=== PATIENT | female | born 1965 | race African-American/Black ===

== ENCOUNTER 2017-11-16 15:40 | Inpatient (IN) | payer OTHER ==
[2017-11-16] MEDS ORDERED: Succinylcholine Chloride 20 MG/ML 10 ml SYRINGE FS ONE (16:07)
[2017-11-16 16:35] LABS: Bilirubin Small (Negative); Blood, Urine Negative (Negative); Clarity CLOUDY (Clear); Glucose, Urine (Dipstick) Negative (Negative); Leukocyte Negative (Negative); Nitrite Negative (Negative); Protein, Urine (Dipstick) 30 mg/dL (Neg-Trace); Squamous Epithelial None Seen HPF (0-3); Urobilinogen 0.2 mg/dL (0.2-1.0); WBC/HPF None Seen HPF (0-3); pH, Urine 5.5 (5.0-9.0)
[2017-11-16 16:38] LABS: Pathc Cast-AUWi Flag 11.65 (0-2.49); Yeast-AUWi Flag 66.8 (0-25.0)
[2017-11-16 16:48] LABS: Hyaline Casts/LPF 0-3 HYALINE CAST LPF (0-3 Hyaline); Yeast-All Forms None Seen HPF (None Seen)
[2017-11-16 16:49] LABS: Bacteria/HPF 2+ HPF (None Seen); Manual Microscopic Reviewed? No Path Casts Seen
--- NOTE | 2017-11-16 16:58 | RAD ---
PORTABLE CHEST ONE VIEW 11/16/17 at 4:35 p.m. HISTORY: Sepsis, hypoxia. FINDINGS: The heart size is normal. Lungs are well expanded. There is air space disease in the right mid and lo wer lung zones. No pneumothoraces or large effusions are seen. IMPRESSION: Right lung pneumonia. POS: [facility]
[2017-11-16 17:34] LABS: Carbamazepine-Tegretol 7.6 ug/mL (4.0-12.0)
[2017-11-16 17:38] LABS: CKMB 2.3 ng/mL (0-6.6); Troponin I 0.017 ng/mL (< 0.028)
[2017-11-16 17:53] LABS: ALT (SGPT) 118 U/L (8-55); AST (SGOT) 161 U/L (5-34); Albumin 2.7 g/dL (3.5-5.0); Alkaline Phosphatase 66 U/L (40-150); Anion Gap 26 mmol/L (10-20); BUN (Urea Nitrogen) 69 mg/dL (9.8-20.1); Bilirubin, Total 0.3 mg/dL (0.2-1.2); Calc. Creatinine Clearance 0 mL/min (70-130); Calcium 8.6 mg/dL (7.8-10.44); Carbon Dioxide 16 mmol/L (22-29); Chloride 116 mmol/L (98-107); Estimated GFR-MDRD 25; Globulin 4.6 g/dL (2.4-3.5); Glucose 300 mg/dL (70-105); Potassium 5.4 mmol/L (3.5-5.1); Protein, Total 7.3 g/dL (6.0-8.3); Sodium 153 mmol/L (136-145)
[2017-11-16] MEDS ORDERED: Clindamycin/D5W 900 MG in Premix Bag 1 BAG IVPB SCH (18:15)
[2017-11-16] MEDS ORDERED: Cefepime 2 GM, Syringe 2.5 ML in Sterile Water 10 ML SLOW IVP SCH (18:15)
[2017-11-16 18:34] LABS: Band 26 % (5-11); Hemoglobin 14.8 g/dL (12.0-16.0); Lymphocytes 12 % (21-51); MDiff Complete? YES; Mean Corpuscular Hemoglobin 37.5 pg (27.0-31.0); Mean Platelet Volume 7.3 fL (7.4-10.4); Metamyelocyte 8 % (0-0); Monocytes 8 % (0-10); Neutrophil 44 % (42-75); PLT Morphology Comment Appears Adequate; Platelet Count 226 thou/uL (130-400); RBC Distribution Width 13.3 % (11.5-14.5); Reactive Lymphocytes 2 % (0-10); Red Blood Cell (RBC) Count 3.94 mill/uL (4.20-5.40); White Blood Cell (WBC) Count 3.3 thou/uL (4.8-10.8)
[2017-11-16] MEDS ORDERED: Dextrose 5% in Water 1,000 ML IV PRN (18:55)
[2017-11-16] MEDS ORDERED: Dextrose 50% Abboject 50 ML SYRINGE SLOW IVP PRN (18:55)
[2017-11-16] MEDS ORDERED: Acetaminophen 325 MG TAB PO PRN (18:55)
[2017-11-16] MEDS ORDERED: Ondansetron HCl/PF 4 MG/2 ML Vial IVP PRN (18:55)
[2017-11-16] MEDS ORDERED: CCU Electrolyte Replacement 1 EACH FS SCH (18:55)
[2017-11-16] MEDS ORDERED: Vancomycin HCl 1 GM in Sodium Chloride 0.9% 250 ML 250 ML IVPB SCH (18:55)
[2017-11-16] MEDS ORDERED: Potassium Phosphate 15 MMOL in Sodium Chloride 0.9% 250 ML 250 ML IV PRN (19:20)
[2017-11-16] MEDS ORDERED: CCU ELECTROLYTE REPLACEMENT PROTOCOL FS PRN (19:20)
[2017-11-16] MEDS ORDERED: Potassium Chloride 40 MEQ in Sodium Chloride 0.9% 250 ML 250 ML IVPB PRN (19:20)
[2017-11-16] MEDS ORDERED: Magnesium 2 GM/NS 0.9% 100 ML 2 GM in Premix Bag 1 BAG IVPB PRN (19:20)
[2017-11-16] MEDS ORDERED: Magnesium Oxide 400 MG TAB PO PRN ×2 (19:20)
[2017-11-16] MEDS ORDERED: Potassium Chloride 40 MEQ in Premix Bag 1 BAG IVPB PRN (19:20)
[2017-11-16] MEDS ORDERED: Potassium Chloride 20 MEQ TAB PO PRN (19:20)
[2017-11-16] MEDS ORDERED: Potassium Phosphate 9 MMOL in Sodium Chloride 0.9% 100 ML IVPB PRN (19:20)
[2017-11-16] MEDS ORDERED: Potassium Phosphate 12 MMOL in Sodium Chloride 0.9% 250 ML 250 ML IV PRN (19:20)
[2017-11-16] MEDS ORDERED: Levofloxacin 750 mg/D5W 500 MG in Premix Bag 1 BAG IVPB SCH (19:45)
[2017-11-16] MEDS: Sodium Chloride 0.9% 1,000 ML IV SCH (20:00)
--- NOTE | 2017-11-16 20:10 | HP ---
REASON FOR ADMISSION: Septic shock with multiorgan failure, acute kidney injury , acute respiratory failure with hypoxia, pneumonia likely aspiration, debilitated patient. HISTORY OF PRESENT ILLNESS: The patient was sent from [facility] for saturations of 85% on 3 liters with low systolic blood pressure in the 90s. Please note, the patient is obtunded at present and majority of history was obtained by talking to the ER physician, records from [facility] , and prior medical records. On arrival here, the patient had systolic blood pressures of 70, heart rate of 124. Her second liter of fluid is being resuscitated at present. She was found to have pneumonia, bands of 26%. Sodium of 153, bicarbonate of 16, BUN 69, creatinine 2.4. Lactic acid was 9.6, elevated liver enzymes, and albumin 2.7. PAST MEDICAL/SURGICAL HISTORY: The patient has intellectual disability and most likely is bedridden, complex partial seizures, dyslipidemia, diabetes mellitus, history of menorrhagia, history of dermatophytosis of groin and perianal area, urinary incontinence, history of myoclonic jerking, left breast biopsy, cervical degenerative disk disease with subluxation of C1-C2 per prior records recorded in 04/2017 by Neurosurgery [facility]. CURRENT MEDICATIONS: Per prior records, the patient is on NovoLog sliding scale , Depakote extended release 1 gram in a.m. and 500 mg q.p.m., Tegretol 200 mg p.o. 3 times daily, Keppra 500 mg p.o. twice daily, pravastatin 20 mg p.o. at bedtime. The patient has been started on Tamiflu 75 mg p.o. twice daily from the 2nd of this month, metformin 1 gram q.p.m. ALLERGIES: No known drug allergies. PERSONAL HISTORY: The patient is a care home resident. Does not abuse alcohol, drugs, or smoke. FAMILY HISTORY: Cannot be obtained as no family is available. REVIEW OF SYSTEMS: Cannot be obtained as patient is obtunded at present. PHYSICAL EXAMINATION: GENERAL: The patient is a 52-year-old female who is cachectic and currently in septic shock and is obtunded. VITAL SIGNS: Blood pressure 70/60, pulse 124 per minute, respiratory rate 20 per minute, temperature 100.9 degrees Fahrenheit, saturating 88% on room air and 93% on 3 liters nasal cannula. NECK: Supple, no elevated JVD. HEENT: Eyes: The patient has strabismus. Pupils are 2 mm and sluggishly reacting to light. Oral cavity, mucous membranes are dry. No exudate seen. CARDIOVASCULAR: S1, S2 heard, tachycardic. RESPIRATORY: Air entry 1+ bilateral. Scattered rhonchi plus bilateral. ABDOMEN: Soft, bowel sounds heard. No tenderness, rigidity or guarding. EXTREMITIES: The patient has contractures of all 4 extremities. She also appears to have foot drop. Dupuytren's contractures of both hands. Peripheral pulses are barely palpable in the upper extremities. No ischemic ulcerations or gangrene. CENTRAL NERVOUS SYSTEM: The patient has not seen moving any extremities at present. She is lying limp on the ER gurney. PSYCHIATRIC: Cannot be assessed as patient is obtunded at present. LABORATORY DATA: White count 3.3, H&H 14 and 47, platelet count 226, MCV is 121 with 44% neutrophils, 26% bands. Sodium 153, potassium 5.4, serum bicarbonate 16, BUN 69, creatinine 2.4, serum glucose 300. Lactic acid is 9.6, AST 161, ALT 118. Total bilirubin 0.3, albumin is 2.7. One set of cardiac enzymes are negative. UA shows 2+ bacteria. Chest x-ray done showed right lung pneumonia. CLINICAL IMPRESSION AND PLAN: The patient will be admitted to [facility]. She is in septic shock, multiorgan failure, acute kidney injury, acute respiratory failure with hypoxia, right lung pneumonia, metabolic acidosis, severe dehydration, moderate to severe protein malnutrition with the patient weighing only 29 kilos. She was given 2 liters of fluid bolus in the ER and we will continue her on normal saline at 100 mL per hour. She has been pancultured and we will continue her on cefepime, Levaquin, and vancomycin. Likely, the patient has right lung aspiration pneumonia. We will continue her on Keppra and valproic acid for now for her history of seizures. If the patient can swallow in the morning, she can start her Tegretol. Her overall prognosis is poor. The patient has been started on Tamiflu from the 2nd of this month and we will continue this. I have discussed her findings with Dr. Baca, who has evaluated her in the ER here. Due to the patient's poor prognosis, her emaciated baseline with multiorgan failure at present, as mentioned above, the patient is being made do not resuscitate by me and Dr. Baca. Resuscitation will do more harm to her with her current physical condition than help her. Stopping short of resuscitating, the patient will be treated aggressively. We will also place her on stress dose of steroids. Please note, multiple attempts at reaching family including Ms. Amy Pennington, the number to reach her per care home records, , has not been answered. Case management consultation will be requested for help with locating next of kin. [facility] medical radiation dosimetrist, Ms. Marcelina Ling, number to reach her [phone] is again not reachable. I did speak to [facility] on-call and they were not able to provide a legal guardian for patient per their records, although they have been following the patient for quite sometime at [facility]. The patient was recently moved from [facility] to [facility]. Efforts to reach next of kin will continue with help from social work and case management. WENDIE
[2017-11-16] MEDS ORDERED: Cefepime 1 GM in Sodium Chloride 0.9% 100 ML IVPB SCH (21:00)
[2017-11-16] MEDS: Cefepime 1 GM, Admixture Fee 1 EACH in Sterile Water 10 ML SLOW IVP SCH (21:26)
[2017-11-16] MEDS ORDERED: Valproate Sodium 250 mg/5 ml UD Cup PO SCH (21:45)
[2017-11-16] MEDS ORDERED: Oseltamivir 6 MG/ML ORAL SUSP PO SCH (21:45)
[2017-11-16] MEDS ORDERED: VANCOMYCIN IVPB PRN (21:45)
[2017-11-16] MEDS: carBAMazepine 200 MG TAB PO SCH (22:02)
[2017-11-16] MEDS ORDERED: Sodium Chloride 0.9% 500 ML IV SCH (22:15)
[2017-11-16] MEDS: Sodium Chloride 0.9% 500 ML IVPB SCH ×2 (22:15→23:50)
[2017-11-16 22:22] VITALS: BMI 14.6
[2017-11-16 23:39] LABS: Bilirubin Negative (Negative); Blood, Urine Small (Negative); Clarity CLOUDY (Clear); Glucose, Urine (Dipstick) 500 mg/dL (Negative); Leukocyte Negative (Negative); Nitrite Negative (Negative); Protein, Urine (Dipstick) 30 mg/dL (Neg-Trace); Urobilinogen 0.2 mg/dL (0.2-1.0)
[2017-11-16 23:42] LABS: Bacteria/HPF None Seen HPF (None Seen); Hyaline Casts/LPF 4-6 HYALINE CAST LPF (0-3 Hyaline); Pathc Cast-AUWi Flag 1.21 (0-2.49); RBC/HPF 0-3 HPF (0-3); Squamous Epithelial 0-3 HPF (0-3); WBC/HPF 0-3 HPF (0-3)
[2017-11-16 23:44] LABS: Yeast-AUWi Flag 92.4 (0-25.0)
[2017-11-17] LABS: Yeast-All Forms None Seen HPF (None Seen)
[2017-11-17 00:01] LABS: Renal Epithelial None Seen HPF (0-3); Transitional Epithelial NONE SEEN HPF (0-3)
--- NOTE | 2017-11-17 00:13 | CON ---
DATE OF CONSULTATION: 11/16/2017 HISTORY OF PRESENT ILLNESS: Ms. Mora is a 52-year-old female with cerebral palsy who resides in [facility]. She is cared for by Dr. Raymond, although per my discussion with Dr. Ruiz, he had no contact with her. His nurse practitioner had contact with her. There were no contact numbers that are operable with regards to contact people. She has no designate d tool and fixture repairer per my discussion with the hospitalist and the nursing staff in the ER. She was admitted today with hypotension and tachycardia. She has been volume resuscitated. She has advanced cerebral palsy, is bedridden. PAST MEDICAL HISTORY: Remarkable for, 1. Seizure disorder. 2. Lipid disorder. 3. Diabetes. 4. History of urinary incontinence. 5. History of myoclonic jerking. 6. History of breast biopsy. 7. Degenerative arthritis according to old records. She is unable to give a history. FAMILY HISTORY: Not obtainable. SOCIAL HISTORY: She is obviously a nonsmoker, nondrinker. ALLERGIES: There were no reported drug allergies. REVIEW OF SYSTEMS: Not obtainable. PHYSICAL EXAMINATION: GENERAL: She is extremely cachectic. She is obtunded. VITAL SIGNS: Her pressure is in the 70s, heart rate was 120, respiratory rate was in the 30s. HEENT: Pupils were equal. Sclerae were anicteric. NECK: Without lymphadenopathy. LUNGS: Remarkable for coarse equal breath sounds. HEART: Regular rhythm. ABDOMEN: Soft. She was extremely cachectic. There were no palpable masses. EXTREMITIES: Without asymmetry. Again, cachectic extremities, no muscle. LABORATORY DATA: White count is 3.3, hemoglobin 14.8, platelets 226. Sodium 153, potassium 5.4, chl oride 116, bicarbonate 16, BUN 69, creatinine 2.47. AST 161, ALT 118, albumin 2.7. IMPRESSION: Hypotension, most likely a combination of early sepsis given that she has an infiltrate on my review in her lower lung field on the right and severe intravascular volume depletion manifeste d by elevated BUN, creatinine, sodium, and chloride. Aggressive volume resuscitation is appropriate, mechanical ventilation and life support is not in this setting since she has no caretakers. Dr. Last baugh and I have discussed this and agreed that placing her on mechanical ventilation or doing CPR would not be appropriate in this setting. She may well survive this with aggressive volume resuscit ation and antibiotics, but it would not be appropriate to intubate her or perform CPR, so a do not re suscitate order has been entered. This is 70-minute consult with greater than 50% of the time being involved with reviewing records, reviewing radiographs, and discussing care on the unit with the care team.
[2017-11-17 05:47] LABS: ALT (SGPT) 167 U/L (8-55); AST (SGOT) 222 U/L (5-34); Albumin 2.1 g/dL (3.5-5.0); Alkaline Phosphatase 52 U/L (40-150); Anion Gap 15 mmol/L (10-20); BUN (Urea Nitrogen) 43 mg/dL (9.8-20.1); Bilirubin, Total 0.2 mg/dL (0.2-1.2); Calc. Creatinine Clearance 30 mL/min (70-130); Calcium 7.7 mg/dL (7.8-10.44); Carbon Dioxide 19 mmol/L (22-29); Chloride 122 mmol/L (98-107); Estimated GFR-MDRD 60; Globulin 3.7 g/dL (2.4-3.5); Glucose 218 mg/dL (70-105); Potassium 4.4 mmol/L (3.5-5.1); Protein, Total 5.8 g/dL (6.0-8.3); Sodium 152 mmol/L (136-145)
[2017-11-17] MEDS: Sodium Chloride 0.9% 1,000 ML IV SCH ×2 (06:03→22:15)
[2017-11-17 06:14] LABS: Band 39 % (5-11); Hemoglobin 11.5 g/dL (12.0-16.0); Lymphocytes 8 % (21-51); MDiff Complete? YES; Mean Corpuscular HGB CONC 31.9 g/dL (32.0-36.0); Mean Corpuscular Hemoglobin 37.6 pg (27.0-31.0); Mean Platelet Volume 7.6 fL (7.4-10.4); Metamyelocyte 12 % (0-0); Monocytes 13 % (0-10); Neutrophil 28 % (42-75); Platelet Count 274 thou/uL (130-400); RBC Distribution Width 13.1 % (11.5-14.5); Red Blood Cell (RBC) Count 3.04 mill/uL (4.20-5.40); White Blood Cell (WBC) Count 4.3 thou/uL (4.8-10.8)
[2017-11-17] MEDS: carBAMazepine 200 MG TAB PO SCH ×3 (08:02→21:56)
[2017-11-17] MEDS: Valproate Sodium 250 mg/5 ml UD Cup PO SCH ×3 (08:03→21:56)
[2017-11-17] MEDS: Oseltamivir 6 MG/ML ORAL SUSP PO SCH ×2 (08:03→21:56)
[2017-11-17] MEDS: Cefepime 1 GM, Admixture Fee 1 EACH in Sterile Water 10 ML SLOW IVP SCH ×2 (08:27→22:14)
[2017-11-17] MEDS: Enoxaparin Sodium 30 MG/0.3 ML SYRINGE SC SCH (08:28)
[2017-11-17] MEDS ORDERED: FLU VACC QS2017-18 36 mo. & older 0.5 ML SYRINGE IM ONE (09:00)
--- NOTE | 2017-11-17 10:36 | PDOC.PN ---
- Subjective Encounter Start Date: 11/17/17 Encounter Start Time: 08:30 -: old records requested/rev pt only responds to noxious stimuli - Objective Resuscitation Status: Resuscitation Status DNR:Do Not Resuscitate MAR Reviewed: Yes Vital Signs & Weight: Vital Signs (12 hours) Temp Pulse Resp BP Pulse Ox 11/17/17 08:07 99 11/17/17 08:00 96.5 F L 102 H 17 99 11/17/17 07:54 96.5 F L 102 H 17 93/58 L 97 11/17/17 04:30 98.9 F 108 H 24 H 82/53 L 100 11/17/17 01:34 87/50 L 11/17/17 00:31 97.9 F 104 H 16 70/51 L 97 Weight Admit Weight 74 lb 9.6 oz Weight 74 lb 9.6 oz I&O: 11/16/17 11/17/17 11/18/17 06:59 06:59 06:59 Intake Total 2009 Output Total 550 Balance 1460 Result Diagrams: 11/17/17 04:51 11/17/17 04:51 Additional Labs: Accuchecks 11/17/17 11/17/17 11/16/17 06:43 00:58 23:04 POC Glucose 199 H 257 H 235 H Radiology Reviewed by me: Yes EKG Reviewed by me: Yes Phys Exam - Physical Examination Constitutional: NAD HEENT: PERRLA, sclera anicteric dry MM Neck: no JVD, supple Respiratory: no wheezing, no rales, no rhonchi Cardiovascular: RRR, no significant murmur, no rub Gastrointestinal: soft, no distention, positive bowel sounds Musculoskeletal: no edema, pulses present Lymphatic: no nodes Skin: no rash, normal turgor Dx/Plan (1) Acute kidney failure Status: Acute (2) Dehydration Code(s): E86.0 - DEHYDRATION Status: Acute (3) Healthcare associated bacterial pneumonia Code(s): J15.9 - UNSPECIFIED BACTERIAL PNEUMONIA Status: Acute (4) Hypernatremia Code(s): E87.0 - HYPEROSMOLALITY AND HYPERNATREMIA Status: Acute (5) Lactic acidosis Code(s): E87.2 - ACIDOSIS Status: Acute (6) Septic shock Code(s): A41.9 - SEPSIS, UNSPECIFIED ORGANISM; R65.21 - SEVERE SEPSIS WITH SEPTIC SHOCK Status: Acute (7) Transaminitis Code(s): R74.0 - NONSPEC ELEV OF LEVELS OF TRANSAMNS & LACTIC ACID DEHYDRGNSE Status: Acute (8) Cerebral palsy Code(s): G80.9 - CEREBRAL PALSY, UNSPECIFIED Status: Chronic (9) Diabetes type 2, controlled Code(s): E11.9 - TYPE 2 DIABETES MELLITUS WITHOUT COMPLICATIONS Status: Chronic (10) Dyslipidemia Code(s): E78.5 - HYPERLIPIDEMIA, UNSPECIFIED Status: Chronic (11) Macrocytic anemia Code(s): D53.9 - NUTRITIONAL ANEMIA, UNSPECIFIED Status: Chronic (12) Protein-calorie malnutrition, severe Code(s): E43 - UNSPECIFIED SEVERE PROTEIN-CALORIE MALNUTRITION Status: Chronic (13) Seizure disorder Code(s): G40.909 - EPILEPSY, UNSP, NOT INTRACTABLE, WITHOUT STATUS EPILEPTICUS Status: Chronic - Plan cont current plan of care, continue antibiotics * change ivf to dex with 1/4 ns at 125 ml per hour * control blood sugar * monitor labs * continue iv antibiotics * will wait for any improvement in next 24 hours * she may need peg tube if unable to eat * follow culture * medication reviewed as below * symptomatic treatment. Review of Systems - Review of Systems Other: unable to review as pt is encephalopathic - Medications/Allergies Allergies/Adverse Reactions: Allergies Allergy/AdvReac Type Severity Reaction Status Date / Time No Known Allergies Allergy Verified 04/28/17 03:48 Medications: Current Medications Acetaminophen (Tylenol) 650 mg PO Q4H PRN PRN Reason: Headache/Fever or Pain Carbamazepine (Tegretol) 200 mg PO TID [facility] Last Admin: 11/17/17 08:02 Dose: Not Given Dextrose/Water (Dextrose 50%) 25 gm SLOW IVP PRN PRN PRN Reason: Hypoglycemia Enoxaparin Sodium (Lovenox) 30 mg SC 0900 [facility] Last Admin: 11/17/17 08:28 Dose: 30 mg Glucagon (Glucagon) 1 mg IM PRN PRN PRN Reason: Hypoglycemia Dextrose/Water (D5w) 1,000 mls @ 0 mls/hr IV .Q0M PRN; As Directed PRN Reason: Hypoglycemia Levetiracetam 500 mg/ Device 100 mls @ 200 mls/hr IVPB BID [facility] Last Admin: 11/17/17 08:27 Dose: 100 mls Sodium Chloride (Normal Saline 0.9%) 1,000 mls @ 100 mls/hr IV .Q10H [facility] Last Admin: 11/17/17 06:03 Dose: 1,000 mls Potassium Chloride 40 meq/ (Sodium Chloride) 270 mls @ 135 mls/hr IVPB ASDIR PRN PRN Reason: FOR SERUM K+ 2.5 - 3.5 Potassium Chloride 40 meq/ (Device) 100 mls @ 50 mls/hr IVPB ASDIR PRN PRN Reason: FOR SERUM K+ 2.5 - 3.5 Magnesium Sulfate 1 gm/ Sodium (Chloride) 102 mls @ 102 mls/hr IV PRN PRN PRN Reason: MAG LEVEL 1.4 - 2.0 Magnesium Sulfate 2 gm/ Device 100 mls @ 100 mls/hr IVPB ASDIR PRN PRN Reason: MAGNESIUM < 1.4 Potassium Phosphate 9 mmol/ (Sodium Chloride) 103 mls @ 25.75 mls/hr IVPB ASDIR PRN PRN Reason: Phosphate 1.0-1.8 Potassium Phosphate 12 mmol/ (Sodium Chloride) 254 mls @ 63.5 mls/hr IV ASDIR PRN PRN Reason: Serum phosphate 0.5-0.9 Potassium Phosphate 15 mmol/ (Sodium Chloride) 255 mls @ 63.75 mls/hr IV ASDIR PRN PRN Reason: Serum Phos < 0.5 Cefepime HCl 1 gm/Miscellaneous Medication 1 each/ Sterile Water 10 mls @ 120 mls/hr SLOW IVP 0800,2000 [facility] Last Admin: 11/17/17 08:27 Dose: 10 mls Levofloxacin 250 mg/ Device 50 mls @ 100 mls/hr IVPB Q2D [facility] Vancomycin HCl 250 mg/Miscellaneous Medication 1 each/ Sodium Chloride 100 mls @ 100 mls/hr IVPB Q2D [facility] Insulin Human Lispro (Humalog) 0 units SC .MODERATE SLIDING SC PRN PRN Reason: Moderate Correctional Scale Magnesium Oxide (Magnesium Oxide) 400 mg PO BIDPRN PRN PRN Reason: FOR SERUM MAG 1.4 - 2.0 Magnesium Oxide (Magnesium Oxide) 800 mg PO PRN PRN PRN Reason: FOR SERUM MAG < 1.4 Methylprednisolone Sodium Succinate (Solu-Medrol) 20 mg IVP Q8HR [facility] Last Admin: 11/17/17 06:03 Dose: 20 mg Miscellaneous Medication (Phos-Nak) 1 pkt PO TIDPRN PRN PRN Reason: FOR PHOS LEVEL 1.0 - 1.8 Miscellaneous Medication (Phos-Nak) 2 pkt PO TIDPRN PRN PRN Reason: FOR PHOS LEVEL 0.5 - 1.0 Miscellaneous Medication (Pharmacy To Dose) 1 each IVPB PRN PRN PRN Reason: SEPSIS Ccu Electrolyte (Replacement Protocol) 0 each FS PRN PRN PRN Reason: FOR ELECTROLYTE REPLACEMENT Ondansetron HCl (Zofran) 4 mg IVP Q6H PRN PRN Reason: Nausea/Vomiting Oseltamivir Phosphate (Tamiflu) 75 mg PO BID [facility] Stop: 11/21/17 09:01 Last Admin: 11/17/17 08:03 Dose: Not Given Potassium Chloride (K-Dur) 40 meq PO ASDIR PRN PRN Reason: FOR SERUM K+ 2.5 - 3.5 Potassium Chloride (Klor-Con) 40 meq PER TUBE ASDIR PRN PRN Reason: FOR SERUM K+ 2.5-3.5 Valproic Acid (Depakene Liquid) 500 mg PO TID [facility] Last Admin: 11/17/17 08:03 Dose: Not Given
[2017-11-17] MEDS: D5 1/4 NS 1,000 ML IV SCH (12:30)
--- NOTE | 2017-11-17 12:43 | PRG ---
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 There is no designated point of contact apparently that is a valid number still. In my opinion, it w ould be almost criminal to place her on life support or put a feeding tube in her. I firmly believe that she is at the end of her life. She is 5 feet tall and weighs 74 pounds and is extremely cachect ic. PHYSICAL EXAMINATION: VITAL SIGNS: Vital signs have been stable overnight. She is currently afebrile, heart rate is 109, respiratory rate 17, oximetry is 98, blood pressure 102/64. She is still receiving antibiotics and IV fluids. Her microbiology is negative so far. Antibiotics have been simplified. IMPRESSION: 1. Aspiration pneumonia. 2. End of life cerebral palsy. I think she needs inpatient hospice, getting her qualified for this, i.e., consent forms is the obstacle. If not, we will just have to keep her in the hospital and keep her comfortable until she succumbs. She is in my belief and Dr. Ruiz's belief at the end of her life.
[2017-11-18] MEDS: D5 1/4 NS 1,000 ML IV SCH (01:26)
[2017-11-18] MEDS: HumaLOG 300 UNITS/3 ML VIAL SC PRN ×2 (07:20→21:41)
[2017-11-18] MEDS: Sodium Chloride 0.9% 1,000 ML IV SCH ×2 (07:22→20:05)
[2017-11-18] MEDS: carBAMazepine 200 MG TAB PO SCH ×3 (09:54→20:07)
[2017-11-18] MEDS: Enoxaparin Sodium 30 MG/0.3 ML SYRINGE SC SCH (09:54)
[2017-11-18] MEDS: Valproate Sodium 250 mg/5 ml UD Cup PO SCH ×3 (09:55→20:08)
[2017-11-18] MEDS: Oseltamivir 6 MG/ML ORAL SUSP PO SCH ×2 (09:55→20:08)
--- NOTE | 2017-11-18 13:42 | PDOC.PN ---
- Subjective Encounter Start Date: 11/18/17 Encounter Start Time: 13:40 Patient seen and examined, no new changes in the last 24 hours. - Objective Resuscitation Status: Resuscitation Status DNR:Do Not Resuscitate Vital Signs & Weight: Vital Signs (12 hours) Temp Pulse Resp BP Pulse Ox 11/18/17 12:02 97.9 F 75 14 105/47 L 98 11/18/17 08:31 98.1 F 75 14 110/68 98 11/18/17 04:00 98.3 F 75 16 109/69 98 Weight Admit Weight 74 lb 9.6 oz Weight 74 lb 9.6 oz I&O: 11/17/17 11/18/17 11/19/17 06:59 06:59 06:59 Intake Total 2009 1200 Output Total 550 550 Balance 1460 650 Result Diagrams: 11/17/17 04:51 11/17/17 04:51 Additional Labs: Accuchecks 11/18/17 11/18/17 11/18/17 10:28 06:22 01:23 POC Glucose 145 H 193 H 187 H 11/17/17 17:09 POC Glucose 168 H Phys Exam - Physical Examination Constitutional: NAD HEENT: PERRLA, moist MMs Neck: no nodes, no JVD Respiratory: no wheezing, no rales Cardiovascular: RRR, no significant murmur Gastrointestinal: soft, non-tender Musculoskeletal: no edema, pulses present not answering questions, not following commands Lymphatic: no nodes Dx/Plan (1) Dehydration Code(s): E86.0 - DEHYDRATION Status: Acute (2) Cerebral palsy Code(s): G80.9 - CEREBRAL PALSY, UNSPECIFIED Status: Chronic (3) Dyslipidemia Code(s): E78.5 - HYPERLIPIDEMIA, UNSPECIFIED Status: Chronic (4) Protein-calorie malnutrition, severe Code(s): E43 - UNSPECIFIED SEVERE PROTEIN-CALORIE MALNUTRITION Status: Chronic - Plan * Extremely poor prognosis, palliative care onboard * will continue with current plan of care, however, hospice/palliative care would be the best option for this patient * no other changes for now * no family at bedside
[2017-11-18] MEDS: Cefepime 1 GM, Admixture Fee 1 EACH in Sterile Water 10 ML SLOW IVP SCH ×2 (14:07→20:05)
[2017-11-18] MEDS ORDERED: Vancomycin HCl 250 MG, Admixture Fee 1 EACH in Sodium Chloride 0.9% 100 ML IVPB SCH (18:00)
[2017-11-18] MEDS ORDERED: Sodium Chloride 0.9% 1,000 ML IV SCH (20:43)
[2017-11-18] MEDS ORDERED: Furosemide 20 MG/2 ML VIAL SLOW IVP SCH (20:45)
[2017-11-18] MEDS: Dextrose 5% in Water 1,000 ML IV SCH (21:40)
--- NOTE | 2017-11-18 22:12 | PRG ---
DATE OF SERVICE: 11/18/2017 SERVICE: Pulmonary Medicine. INTERVAL HISTORY: Patient is doing okay from a respiratory standpoint. She remains a little bit of oxygen. She can provide me any additional elements of the history. She is completely encephalopathi c statically. PHYSICAL EXAMINATION: VITAL SIGNS: Afebrile, pulse 80, blood pressure 113/71, respirations 14, saturation 98% on 3 liters nasal cannula. GENERAL: Patient is awake, alert, in no apparent distress. LUNGS: Excellent air entry. Rhonchi are present. No prolonged expiratory phase. Crackles are also evident dependently. HEART: Normal rate, regular. ABDOMEN: Soft, nontender, nondistended. Bowel sounds positive. MUSCULOSKELETAL: Right lower extremity has 2+ pitting. The left lower extremity has trace pitting. : Indwelling catheters present. NEUROLOGIC: Grossly nonfocal. LABORATORY DATA: Blood sugars ranged from 145 to 193. Blood cultures x2 are negative. Urine cultur e is also negative. ASSESSMENT: 1. Static encephalopathy secondary to cerebral palsy. 2. Acute hypoxic respiratory failure. 3. Healthcare-associated pneumonia. PLAN: We will continue antibiotics, and nebulized medications, and other supportive measures. We wi ll watch her volume status. IV fluids will be reduced as the patient has significant signs consisten t with volume overload. Pulmonary will continue to follow commands intermittently while the patient remains in this location.
[2017-11-19] MEDS: Cefepime 1 GM, Admixture Fee 1 EACH in Sterile Water 10 ML SLOW IVP SCH ×2 (08:12→20:44)
[2017-11-19] MEDS: Enoxaparin Sodium 30 MG/0.3 ML SYRINGE SC SCH (08:12)
[2017-11-19] MEDS: carBAMazepine 200 MG TAB PO SCH ×3 (08:12→20:47)
[2017-11-19] MEDS: Oseltamivir 6 MG/ML ORAL SUSP PO SCH ×2 (08:25→20:48)
[2017-11-19] MEDS: Valproate Sodium 250 mg/5 ml UD Cup PO SCH ×3 (08:25→20:48)
[2017-11-19] MEDS: HumaLOG 300 UNITS/3 ML VIAL SC PRN ×2 (13:08→18:55)
--- NOTE | 2017-11-19 13:17 | PDOC.PN ---
- Subjective Encounter Start Date: 11/19/17 Encounter Start Time: 13:16 Patient seen and examined, no new issues in the last 24 hours - Objective Resuscitation Status: Resuscitation Status DNR:Do Not Resuscitate Vital Signs & Weight: Vital Signs (12 hours) Temp Pulse Resp BP Pulse Ox 11/19/17 08:57 98.4 F 59 L 20 105/65 100 11/19/17 08:00 98.4 F 59 L 20 100 11/19/17 04:34 99.8 F H 67 16 116/76 97 11/19/17 02:48 95 Weight Admit Weight 74 lb 9.6 oz Weight 74 lb 9.6 oz I&O: 11/18/17 11/19/17 11/20/17 06:59 06:59 06:59 Intake Total 1200 1480 Output Total 550 850 Balance 650 630 Result Diagrams: 11/17/17 04:51 11/17/17 04:51 Additional Labs: Accuchecks 11/19/17 11/19/17 11/18/17 11:47 06:15 21:03 POC Glucose 233 H 156 H 214 H 11/18/17 15:51 POC Glucose 168 H Phys Exam - Physical Examination Constitutional: NAD HEENT: PERRLA, moist MMs Neck: no nodes, no JVD Respiratory: no wheezing, no rales Cardiovascular: RRR, no significant murmur Gastrointestinal: soft, non-tender Musculoskeletal: no edema, pulses present contracted Deviation from normal: non verbal, not following commands Skin: no rash, normal turgor Dx/Plan (1) Dehydration Code(s): E86.0 - DEHYDRATION Status: Acute (2) Cerebral palsy Code(s): G80.9 - CEREBRAL PALSY, UNSPECIFIED Status: Chronic (3) Dyslipidemia Code(s): E78.5 - HYPERLIPIDEMIA, UNSPECIFIED Status: Chronic (4) Protein-calorie malnutrition, severe Code(s): E43 - UNSPECIFIED SEVERE PROTEIN-CALORIE MALNUTRITION Status: Chronic - Plan * continue current plan of care * patient will benefit from palliative/hospice care as she has a very poor prognosis * will continue with supportive care for now * no family at bedside
[2017-11-19] MEDS: Dextrose 5% in Water 1,000 ML IV SCH (20:41)
[2017-11-20] MEDS: HumaLOG 300 UNITS/3 ML VIAL SC PRN ×3 (06:51→19:10)
[2017-11-20] MEDS ORDERED: Eucerin (Mineral Oil/Petrolatum,White) 30 gm Jar TOP PRN (07:50)
[2017-11-20] MEDS ORDERED: Fleet Enema 133 ML BOT PR PRN (07:50)
[2017-11-20] MEDS ORDERED: Diabetic Tussin 200 MG/10 ML UDCUP PO PRN (07:50)
[2017-11-20] MEDS ORDERED: hydrALAZINE 20 MG/ML VIAL SLOW IVP PRN (07:50)
[2017-11-20] MEDS ORDERED: Sodium Chloride 0.65% Nasal 44 ML BOT EA NARE PRN (07:50)
[2017-11-20] MEDS ORDERED: Senokot 8.6 MG TAB PO PRN (07:50)
[2017-11-20] MEDS ORDERED: Artificial Tear Sol 15 ML BOT EA EYE PRN (07:50)
[2017-11-20] MEDS ORDERED: Chloraseptic Spray 180 ml Bottle PO PRN (07:50)
[2017-11-20] MEDS ORDERED: Mag-Al 1200 mg/1200 mg/30 ML UDCUP PO PRN (07:50)
[2017-11-20] MEDS ORDERED: Milk Of Magnesia 30 ML UDCUP PO PRN (07:50)
[2017-11-20] MEDS ORDERED: Bisacodyl 10 MG SUPP PR PRN (07:50)
[2017-11-20] MEDS: Enoxaparin Sodium 30 MG/0.3 ML SYRINGE SC SCH (08:09)
[2017-11-20] MEDS: carBAMazepine 200 MG TAB PO SCH ×3 (08:09→21:47)
[2017-11-20] MEDS: Cefepime 1 GM, Admixture Fee 1 EACH in Sterile Water 10 ML SLOW IVP SCH ×2 (08:09→21:37)
[2017-11-20] MEDS: Valproate Sodium 250 mg/5 ml UD Cup PO SCH ×3 (08:10→21:49)
[2017-11-20] MEDS: Oseltamivir 6 MG/ML ORAL SUSP PO SCH ×2 (08:10→21:47)
[2017-11-20 08:24] LABS: Hemoglobin 11.4 g/dL (12.0-16.0); Mean Corpuscular HGB CONC 33.2 g/dL (32.0-36.0); Mean Corpuscular Hemoglobin 38.2 pg (27.0-31.0); Mean Platelet Volume 9.1 fL (7.4-10.4); Platelet Count 275 thou/uL (130-400); RBC Distribution Width 12.9 % (11.5-14.5)
[2017-11-20] MEDS: Famotidine/PF 20 mg/2ml Vial SLOW IVP SCH (08:32)
[2017-11-20 09:49] LABS: ALT (SGPT) 329 U/L (8-55); AST (SGOT) 65 U/L (5-34); Albumin 2.1 g/dL (3.5-5.0); Alkaline Phosphatase 68 U/L (40-150); Anion Gap 13 mmol/L (10-20); BUN (Urea Nitrogen) 23 mg/dL (9.8-20.1); Bilirubin, Total 0.3 mg/dL (0.2-1.2); Calc. Creatinine Clearance 46 mL/min (70-130); Carbon Dioxide 24 mmol/L (22-29); Chloride 114 mmol/L (98-107); Estimated GFR-MDRD Greater than 90; Globulin 3.6 g/dL (2.4-3.5); Glucose 234 mg/dL (70-105); Potassium 3.8 mmol/L (3.5-5.1); Protein, Total 5.7 g/dL (6.0-8.3); Sodium 147 mmol/L (136-145)
[2017-11-20 10:51] LABS: Band 22 % (5-11); Eosinophils 1 % (0-10); Lymphocytes 16 % (21-51); MDiff Complete? YES; Macrocytosis MODERATE=16-30 cells (100X) (0-5/hpf); Monocytes 3 % (0-10); Neutrophil 57 % (42-75); RBC Morphology Normal; Reactive Lymphocytes 1 % (0-10)
--- NOTE | 2017-11-20 12:01 | PDOC.PN ---
- Subjective Encounter Start Date: 11/20/17 Encounter Start Time: 07:50 pt is non verbal, does not follow command, Patient seen and examined. No overnight events - Objective Resuscitation Status: Resuscitation Status DNR:Do Not Resuscitate MAR Reviewed: Yes Vital Signs & Weight: Vital Signs (12 hours) Temp Pulse Resp BP Pulse Ox 11/20/17 08:00 98.1 F 75 14 97 11/20/17 07:20 98.1 F 75 14 103/64 97 11/20/17 04:26 98.2 F 66 16 94/61 100 11/20/17 00:37 100 11/20/17 00:12 98.2 F 66 20 97/67 100 Weight Admit Weight 74 lb 9.6 oz Weight 74 lb 9.6 oz I&O: 11/19/17 11/20/17 11/21/17 06:59 06:59 06:59 Intake Total 1480 1140 Output Total 850 775 Balance 630 365 Result Diagrams: 11/20/17 07:59 11/20/17 07:59 Additional Labs: Accuchecks 11/20/17 11/20/17 11/19/17 05:30 00:31 18:16 POC Glucose 169 H 147 H 232 H 11/19/17 11:47 POC Glucose 233 H Phys Exam - Physical Examination Constitutional: NAD HEENT: PERRLA, sclera anicteric dry MM+ Neck: no JVD, supple Respiratory: no wheezing, no rales, no rhonchi Cardiovascular: RRR, no significant murmur, no rub Gastrointestinal: soft, no distention, positive bowel sounds Musculoskeletal: no edema, pulses present unable to assess Lymphatic: no nodes Deviation from normal: flat affact Skin: no rash Dx/Plan (1) Acute kidney failure Status: Acute (2) Dehydration Code(s): E86.0 - DEHYDRATION Status: Acute (3) Healthcare associated bacterial pneumonia Code(s): J15.9 - UNSPECIFIED BACTERIAL PNEUMONIA Status: Acute (4) Hypernatremia Code(s): E87.0 - HYPEROSMOLALITY AND HYPERNATREMIA Status: Acute (5) Lactic acidosis Code(s): E87.2 - ACIDOSIS Status: Acute (6) Septic shock Code(s): A41.9 - SEPSIS, UNSPECIFIED ORGANISM; R65.21 - SEVERE SEPSIS WITH SEPTIC SHOCK Status: Acute (7) Transaminitis Code(s): R74.0 - NONSPEC ELEV OF LEVELS OF TRANSAMNS & LACTIC ACID DEHYDRGNSE Status: Acute (8) Cerebral palsy Code(s): G80.9 - CEREBRAL PALSY, UNSPECIFIED Status: Chronic (9) Diabetes type 2, controlled Code(s): E11.9 - TYPE 2 DIABETES MELLITUS WITHOUT COMPLICATIONS Status: Chronic (10) Dyslipidemia Code(s): E78.5 - HYPERLIPIDEMIA, UNSPECIFIED Status: Chronic (11) Macrocytic anemia Code(s): D53.9 - NUTRITIONAL ANEMIA, UNSPECIFIED Status: Chronic (12) Protein-calorie malnutrition, severe Code(s): E43 - UNSPECIFIED SEVERE PROTEIN-CALORIE MALNUTRITION Status: Chronic (13) Seizure disorder Code(s): G40.909 - EPILEPSY, UNSP, NOT INTRACTABLE, WITHOUT STATUS EPILEPTICUS Status: Chronic - Plan cont current plan of care, social media assistant * no family bedside * prognosis is very poor * palliative care discussing with family about goal of care * medication reviewed as below * symptomatic treatment * continue IVF * repeat labs tomorrow. Review of Systems - Review of Systems Other: unable to review as pt is encephalopathic - Medications/Allergies Allergies/Adverse Reactions: Allergies Allergy/AdvReac Type Severity Reaction Status Date / Time No Known Allergies Allergy Verified 04/28/17 03:48 Medications: Current Medications Acetaminophen (Tylenol) 650 mg PO Q4H PRN PRN Reason: Headache/Fever or Pain Al Hydroxide/Mg Hydroxide (Maalox) 15 ml PO Q4H PRN PRN Reason: Heartburn or Indigestion Albuterol/Ipratropium (Duoneb) 3 ml NEB [id number] PRN PRN Reason: SOB &/or Wheezing Artificial Tears (Tears Renewed 15ml Bottle) 0 drop EA EYE PRN PRN PRN Reason: Dry Eyes Bisacodyl (Dulcolax) 10 mg [place] DAILYPRN PRN PRN Reason: Constipation Carbamazepine (Tegretol) 200 mg PO TID [facility] Last Admin: 11/20/17 08:09 Dose: Not Given Dextrose/Water (Dextrose 50%) 25 gm SLOW IVP PRN PRN PRN Reason: Hypoglycemia Enoxaparin Sodium (Lovenox) 30 mg SC 0900 [facility] Last Admin: 11/20/17 08:09 Dose: 30 mg Famotidine (Pepcid) 20 mg SLOW IVP DAILY [facility] Last Admin: 11/20/17 08:32 Dose: 20 mg Glucagon (Glucagon) 1 mg IM PRN PRN PRN Reason: Hypoglycemia Guaifenesin (Robitussin Sf) 200 mg PO Q4H PRN PRN Reason: Cough Hydralazine HCl (Apresoline) 10 mg SLOW IVP Q4H PRN PRN Reason: Systolic BP > 180 Dextrose/Water (D5w) 1,000 mls @ 0 mls/hr IV .Q0M PRN; As Directed PRN Reason: Hypoglycemia Levetiracetam 500 mg/ Device 100 mls @ 200 mls/hr IVPB BID [facility] Last Admin: 11/20/17 08:08 Dose: 100 mls Cefepime HCl 1 gm/Miscellaneous Medication 1 each/ Sterile Water 10 mls @ 120 mls/hr SLOW IVP 0800,2000 [facility] Last Admin: 11/20/17 08:09 Dose: 10 mls Dextrose/Water (D5w) 1,000 mls @ 40 mls/hr IV .Q24H [facility] Last Admin: 11/19/17 20:41 Dose: 1,000 mls Insulin Human Lispro (Humalog) 0 units SC .MODERATE SLIDING SC PRN PRN Reason: Moderate Correctional Scale Last Admin: 11/20/17 06:51 Dose: 2 unit Magnesium Hydroxide (Milk Of Magnesium) 30 ml PO DAILYPRN PRN PRN Reason: Constipation Methylprednisolone Sodium Succinate (Solu-Medrol) 20 mg IVP DAILY [facility] Last Admin: 11/20/17 08:10 Dose: 20 mg Mineral Oil/White Petrolatum (Eucerin Cream) 0 gm TOP BIDPRN PRN PRN Reason: Dry Skin Miscellaneous Medication (Pharmacy To Dose) 1 each IVPB PRN PRN PRN Reason: SEPSIS Ccu Electrolyte (Replacement Protocol) 0 each FS PRN PRN PRN Reason: FOR ELECTROLYTE REPLACEMENT Ondansetron HCl (Zofran) 4 mg IVP Q6H PRN PRN Reason: Nausea/Vomiting Oseltamivir Phosphate (Tamiflu) 75 mg PO BID [facility] Stop: 11/21/17 09:01 Last Admin: 11/20/17 08:10 Dose: Not Given Phenol (Chloraseptic [place] 180 Ml Bot) 0 ml PO PRN PRN PRN Reason: Sore Throat Senna (Senokot) 2 tab PO HSPRN PRN PRN Reason: Constipation Sodium Biphosphate/Sodium Phosphate (Fleet Enema) 133 ml UT ONE PRN PRN Reason: Constipation Stop: 11/27/17 07:51 Sodium Chloride ([place] Nasal [place] 0.65%) 0 ml EA NARE QIDPRN PRN PRN Reason: Nasal Congestion Valproic Acid (Depakene Liquid) 500 mg PO TID [facility] Last Admin: 11/20/17 08:10 Dose: Not Given
[2017-11-20] MEDS: Dextrose 5% in Water 1,000 ML IV SCH ×2 (17:35→21:49)
--- NOTE | 2017-11-21 00:07 | PRG ---
DATE OF SERVICE: 11/20/2017 SUBJECTIVE: Ms. Mora remains unresponsive. OBJECTIVE: VITAL SIGNS: She is afebrile, heart rate is 58, respiratory rate is 15, oximetry is 100 on 3 liters, blood pressure 110/74. She is 5 feet tall, 74 pounds. Intake and outputs, positive 365. LUNGS: Unchanged. HEART: Unchanged. ABDOMEN: Unchanged. LABORATORY DATA: White count 7, hemoglobin 11.4, platelets 275. Sodium 147, potassium 3.8, chloride 114, bicarb 24, BUN 23, creatinine 0.75. Admitting creatinine was 2.74. I suspect given her exam f indings of no muscle mass, her baseline creatinine is 0.2 or 0.3. IMPRESSION: 1. Aspiration pneumonia. 2. Cerebral palsy, end of the life in my opinion. 3. Aspiration pneumonia, probably with underlying chronic aspiration. 4. Severe protein-calorie malnutrition. 5. Intravascular volume depletion on admission. 6. Do not resuscitate status as per the 2 doctors that have been available to take care with. The primary care team actually found a sister who lives in [facility] who has no interest in coming, I am told ,and then a niece who lives in [place] might come to see her, although they were not aware of her clinical condition and not aware that she was living in the [facility]. care has be en very helpful these days. CPR, intubation, ventilatory support, and PEG feeding is all inappropria te in my opinion. We will continue supportive care. I would treat her with 7 days of IV antibiotics and then consider placement. Inpatient hospice will be appropriate in my opinion, but there has to be some power of health care to sign consent forms as I understand it.
[2017-11-21] MEDS: HumaLOG 300 UNITS/3 ML VIAL SC PRN (06:56)
[2017-11-21] MEDS: Famotidine/PF 20 mg/2ml Vial SLOW IVP SCH (08:20)
[2017-11-21] MEDS: Enoxaparin Sodium 30 MG/0.3 ML SYRINGE SC SCH (08:20)
[2017-11-21] MEDS: Oseltamivir 6 MG/ML ORAL SUSP PO SCH (08:21)
[2017-11-21] MEDS: carBAMazepine 200 MG TAB PO SCH ×3 (08:21→20:51)
[2017-11-21] MEDS: Valproate Sodium 250 mg/5 ml UD Cup PO SCH ×3 (08:22→20:52)
[2017-11-21] MEDS: Cefepime 1 GM, Admixture Fee 1 EACH in Sterile Water 10 ML SLOW IVP SCH ×2 (08:29→20:51)
[2017-11-21 08:44] LABS: ALT (SGPT) 202 U/L (8-55); AST (SGOT) 33 U/L (5-34); Albumin 2.1 g/dL (3.5-5.0); Alkaline Phosphatase 59 U/L (40-150); Anion Gap 13 mmol/L (10-20); BUN (Urea Nitrogen) 17 mg/dL (9.8-20.1); Bilirubin, Total 0.5 mg/dL (0.2-1.2); Calc. Creatinine Clearance 46 mL/min (70-130); Calcium 7.8 mg/dL (7.8-10.44); Carbon Dioxide 23 mmol/L (22-29); Chloride 108 mmol/L (98-107); Estimated GFR-MDRD Greater than 90; Globulin 3.4 g/dL (2.4-3.5); Glucose 230 mg/dL (70-105); Potassium 3.1 mmol/L (3.5-5.1); Protein, Total 5.5 g/dL (6.0-8.3); Sodium 141 mmol/L (136-145)
--- NOTE | 2017-11-21 10:05 | PDOC.PN ---
- Subjective Encounter Start Date: 11/21/17 Encounter Start Time: 06:45 -: non-verbal pt is unresponsive and not able to take by mouth any - Objective Resuscitation Status: Resuscitation Status DNR:Do Not Resuscitate MAR Reviewed: Yes Vital Signs & Weight: Vital Signs (12 hours) Temp Pulse Resp BP Pulse Ox 11/21/17 09:11 97.4 F L 73 24 H 84/52 L 98 11/21/17 07:40 98.3 F 58 L 16 11/21/17 04:01 98.3 F 58 L 16 80/57 L 99 11/21/17 03:43 99 11/21/17 00:58 98.5 F 58 L 20 95/64 99 Weight Admit Weight 74 lb 9.6 oz Weight 74 lb 9.6 oz I&O: 11/20/17 11/21/17 11/22/17 06:59 06:59 06:59 Intake Total 1140 580 Output Total 775 550 Balance 365 30 Result Diagrams: 11/20/17 07:59 11/21/17 08:13 Additional Labs: Accuchecks 11/21/17 11/21/17 11/20/17 06:02 00:08 17:51 POC Glucose 166 H 137 H 240 H 11/20/17 11:53 POC Glucose 244 H Phys Exam - Physical Examination Constitutional: NAD HEENT: PERRLA, sclera anicteric dry MM Neck: no JVD, supple Respiratory: no wheezing, no rales, no rhonchi Cardiovascular: RRR, no significant murmur Gastrointestinal: soft, no distention, positive bowel sounds Musculoskeletal: no edema, pulses present Lymphatic: no nodes Skin: no rash Dx/Plan (1) Acute kidney failure Status: Acute (2) Dehydration Code(s): E86.0 - DEHYDRATION Status: Acute (3) Healthcare associated bacterial pneumonia Code(s): J15.9 - UNSPECIFIED BACTERIAL PNEUMONIA Status: Acute (4) Hypernatremia Code(s): E87.0 - HYPEROSMOLALITY AND HYPERNATREMIA Status: Acute (5) Lactic acidosis Code(s): E87.2 - ACIDOSIS Status: Acute (6) Septic shock Code(s): A41.9 - SEPSIS, UNSPECIFIED ORGANISM; R65.21 - SEVERE SEPSIS WITH SEPTIC SHOCK Status: Acute (7) Transaminitis Code(s): R74.0 - NONSPEC ELEV OF LEVELS OF TRANSAMNS & LACTIC ACID DEHYDRGNSE Status: Acute (8) Cerebral palsy Code(s): G80.9 - CEREBRAL PALSY, UNSPECIFIED Status: Chronic (9) Diabetes type 2, controlled Code(s): E11.9 - TYPE 2 DIABETES MELLITUS WITHOUT COMPLICATIONS Status: Chronic (10) Dyslipidemia Code(s): E78.5 - HYPERLIPIDEMIA, UNSPECIFIED Status: Chronic (11) Macrocytic anemia Code(s): D53.9 - NUTRITIONAL ANEMIA, UNSPECIFIED Status: Chronic (12) Protein-calorie malnutrition, severe Code(s): E43 - UNSPECIFIED SEVERE PROTEIN-CALORIE MALNUTRITION Status: Chronic (13) Seizure disorder Code(s): G40.909 - EPILEPSY, UNSP, NOT INTRACTABLE, WITHOUT STATUS EPILEPTICUS Status: Chronic - Plan cont current plan of care, continue antibiotics, social welfare research worker * palliative care on board to address goal of care and hospice * continue IV antibiotics meanwhile * her prognosis is very poor * continue supportive care * medication reviewed as below. Review of Systems - Review of Systems Other: unable to review as pt is nonverbal - Medications/Allergies Allergies/Adverse Reactions: Allergies Allergy/AdvReac Type Severity Reaction Status Date / Time No Known Allergies Allergy Verified 04/28/17 03:48 Medications: Current Medications Acetaminophen (Tylenol) 650 mg PO Q4H PRN PRN Reason: Headache/Fever or Pain Al Hydroxide/Mg Hydroxide (Maalox) 15 ml PO Q4H PRN PRN Reason: Heartburn or Indigestion Albuterol/Ipratropium (Duoneb) 3 ml NEB [id number] PRN PRN Reason: SOB &/or Wheezing Artificial Tears (Tears Renewed 15ml Bottle) 0 drop EA EYE PRN PRN PRN Reason: Dry Eyes Bisacodyl (Dulcolax) 10 mg [place] DAILYPRN PRN PRN Reason: Constipation Carbamazepine (Tegretol) 200 mg PO TID [facility] Last Admin: 11/21/17 08:21 Dose: Not Given Dextrose/Water (Dextrose 50%) 25 gm SLOW IVP PRN PRN PRN Reason: Hypoglycemia Enoxaparin Sodium (Lovenox) 30 mg SC 0900 [facility] Last Admin: 11/21/17 08:20 Dose: 30 mg Famotidine (Pepcid) 20 mg SLOW IVP DAILY [facility] Last Admin: 11/21/17 08:20 Dose: 20 mg Glucagon (Glucagon) 1 mg IM PRN PRN PRN Reason: Hypoglycemia Guaifenesin (Robitussin Sf) 200 mg PO Q4H PRN PRN Reason: Cough Hydralazine HCl (Apresoline) 10 mg SLOW IVP Q4H PRN PRN Reason: Systolic BP > 180 Dextrose/Water (D5w) 1,000 mls @ 0 mls/hr IV .Q0M PRN; As Directed PRN Reason: Hypoglycemia Levetiracetam 500 mg/ Device 100 mls @ 200 mls/hr IVPB BID [facility] Last Admin: 11/21/17 08:21 Dose: 100 mls Cefepime HCl 1 gm/Miscellaneous Medication 1 each/ Sterile Water 10 mls @ 120 mls/hr SLOW IVP 799,1999 [facility] Last Admin: 11/21/17 08:29 Dose: 10 mls Dextrose/Water (D5w) 1,000 mls @ 40 mls/hr IV .Q24H [facility] Last Admin: 11/20/17 21:49 Dose: Not Given Insulin Human Lispro (Humalog) 0 units SC .MODERATE SLIDING SC PRN PRN Reason: Moderate Correctional Scale Last Admin: 11/21/17 06:56 Dose: 2 unit Magnesium Hydroxide (Milk Of Magnesium) 30 ml PO DAILYPRN PRN PRN Reason: Constipation Methylprednisolone Sodium Succinate (Solu-Medrol) 20 mg IVP DAILY [facility] Last Admin: 11/21/17 08:20 Dose: 20 mg Mineral Oil/White Petrolatum (Eucerin Cream) 0 gm TOP BIDPRN PRN PRN Reason: Dry Skin Miscellaneous Medication (Pharmacy To Dose) 1 each IVPB PRN PRN PRN Reason: SEPSIS Ccu Electrolyte (Replacement Protocol) 0 each FS PRN PRN PRN Reason: FOR ELECTROLYTE REPLACEMENT Ondansetron HCl (Zofran) 4 mg IVP Q6H PRN PRN Reason: Nausea/Vomiting Phenol (Chloraseptic [place] 180 Ml Bot) 0 ml PO PRN PRN PRN Reason: Sore Throat Senna (Senokot) 2 tab PO HSPRN PRN PRN Reason: Constipation Sodium Biphosphate/Sodium Phosphate (Fleet Enema) 133 ml FL ONE PRN PRN Reason: Constipation Stop: 11/27/17 07:51 Sodium Chloride ([place] Nasal [place] 0.65%) 0 ml EA NARE QIDPRN PRN PRN Reason: Nasal Congestion Valproic Acid (Depakene Liquid) 500 mg PO TID [facility] Last Admin: 11/21/17 08:22 Dose: Not Given
[2017-11-21] MEDS: Dextrose 5% in Water 1,000 ML IV SCH (21:30)
[2017-11-22] MEDS: Cefepime 1 GM, Admixture Fee 1 EACH in Sterile Water 10 ML SLOW IVP SCH ×2 (08:40→20:27)
[2017-11-22] MEDS: carBAMazepine 200 MG TAB PO SCH ×3 (08:40→20:27)
[2017-11-22] MEDS: Famotidine/PF 20 mg/2ml Vial SLOW IVP SCH (08:41)
[2017-11-22] MEDS: Enoxaparin Sodium 30 MG/0.3 ML SYRINGE SC SCH (08:41)
[2017-11-22] MEDS: Valproate Sodium 250 mg/5 ml UD Cup PO SCH ×3 (08:42→20:27)
[2017-11-22] MEDS: HumaLOG 300 UNITS/3 ML VIAL SC PRN (12:30)
[2017-11-22] MEDS: Dextrose 5% in Water 1,000 ML IV SCH (15:16)
--- NOTE | 2017-11-22 16:47 | PDOC.PN ---
- Subjective Encounter Start Date: 11/22/17 Encounter Start Time: 16:44 Subjective: Seen and examined condition still the same -: A family member(sister) is coming in on monday - Objective Resuscitation Status: Resuscitation Status DNR:Do Not Resuscitate Vital Signs & Weight: Vital Signs (12 hours) Temp Pulse Resp BP Pulse Ox 11/22/17 10:10 97.5 F L 59 L 16 102/63 97 11/22/17 08:00 97.5 F L 59 L 16 100 Weight Admit Weight 74 lb 9.6 oz Weight 74 lb 9.6 oz I&O: 11/21/17 11/22/17 11/23/17 06:59 06:59 06:59 Intake Total 580 840 Output Total 550 825 Balance 30 15 Result Diagrams: 11/20/17 07:59 11/21/17 08:13 Additional Labs: Accuchecks 11/22/17 11/22/17 11/22/17 12:08 06:28 00:59 POC Glucose 203 H 162 H 181 H 11/21/17 18:21 POC Glucose 205 H Phys Exam - Physical Examination Constitutional: NAD HEENT: PERRLA, moist MMs Neck: no nodes, no JVD, supple, full ROM Respiratory: no wheezing, no rales, no rhonchi Cardiovascular: RRR, no significant murmur, no rub Dx/Plan (1) Acute kidney failure Status: Acute (2) Cerebral palsy Code(s): G80.9 - CEREBRAL PALSY, UNSPECIFIED Status: Chronic (3) Diabetes type 2, controlled Code(s): E11.9 - TYPE 2 DIABETES MELLITUS WITHOUT COMPLICATIONS Status: Chronic (4) Dyslipidemia Code(s): E78.5 - HYPERLIPIDEMIA, UNSPECIFIED Status: Chronic (5) Protein-calorie malnutrition, severe Code(s): E43 - UNSPECIFIED SEVERE PROTEIN-CALORIE MALNUTRITION Status: Chronic (6) Seizure disorder Code(s): G40.909 - EPILEPSY, UNSP, NOT INTRACTABLE, WITHOUT STATUS EPILEPTICUS Status: Chronic - Plan plan discussed w/ family, PT/OT, social problems specialist Dispo challenge--awaiting the family decision on hospice/NH -: Hopefully her sister coming in on monday will make a decision * .
[2017-11-23] MEDS: carBAMazepine 200 MG TAB PO SCH ×3 (09:23→20:22)
[2017-11-23] MEDS: Famotidine/PF 20 mg/2ml Vial SLOW IVP SCH (09:23)
[2017-11-23] MEDS: Enoxaparin Sodium 30 MG/0.3 ML SYRINGE SC SCH (09:23)
[2017-11-23] MEDS: Cefepime 1 GM, Admixture Fee 1 EACH in Sterile Water 10 ML SLOW IVP SCH ×2 (09:23→20:21)
[2017-11-23] MEDS: Valproate Sodium 250 mg/5 ml UD Cup PO SCH ×3 (09:24→20:22)
[2017-11-23] MEDS: HumaLOG 300 UNITS/3 ML VIAL SC PRN (13:41)
--- NOTE | 2017-11-23 18:08 | PDOC.PN ---
- Subjective Encounter Start Date: 11/23/17 Encounter Start Time: 18:06 Subjective: Seen and examined -condition still the same - Objective Resuscitation Status: Resuscitation Status DNR:Do Not Resuscitate Vital Signs & Weight: Vital Signs (12 hours) Temp Pulse Resp BP Pulse Ox 11/23/17 15:40 97.6 F 56 L 20 88/47 L 100 11/23/17 11:25 97.5 F L 49 L 16 101/60 98 11/23/17 08:00 97.3 F L 55 L 20 100 11/23/17 07:15 97.3 F L 55 L 20 91/58 L 100 Weight Admit Weight 74 lb 9.6 oz Weight 74 lb 9.6 oz I&O: 11/22/17 11/23/17 11/24/17 06:59 06:59 06:59 Intake Total 840 1020 440 Output Total 825 1105 1000 Balance 15 -85 -560 Result Diagrams: 11/20/17 07:59 11/21/17 08:13 Additional Labs: Accuchecks 11/23/17 11/23/17 11/23/17 17:04 11:53 05:51 POC Glucose 146 H 274 H 164 H 11/23/17 11/22/17 00:37 18:53 POC Glucose 143 H 187 H Phys Exam - Physical Examination Constitutional: NAD HEENT: PERRLA, moist MMs, sclera anicteric, TM's clear Neck: no nodes, no JVD, supple, full ROM Respiratory: no wheezing, no rales, no rhonchi, clear to auscultation bilateral Cardiovascular: RRR, no significant murmur, no rub Gastrointestinal: soft, non-tender, no distention, positive bowel sounds Dx/Plan (1) Acute kidney failure Status: Acute (2) Cerebral palsy Code(s): G80.9 - CEREBRAL PALSY, UNSPECIFIED Status: Chronic (3) Diabetes type 2, controlled Code(s): E11.9 - TYPE 2 DIABETES MELLITUS WITHOUT COMPLICATIONS Status: Chronic (4) Dyslipidemia Code(s): E78.5 - HYPERLIPIDEMIA, UNSPECIFIED Status: Chronic (5) Protein-calorie malnutrition, severe Code(s): E43 - UNSPECIFIED SEVERE PROTEIN-CALORIE MALNUTRITION Status: Chronic (6) Seizure disorder Code(s): G40.909 - EPILEPSY, UNSP, NOT INTRACTABLE, WITHOUT STATUS EPILEPTICUS Status: Chronic - Plan PT/OT, social work therapist, respiratory therapy Awaiting Her sister to come for dispo planning * .
[2017-11-23] MEDS: Dextrose 5% in Water 1,000 ML IV SCH (20:24)
[2017-11-24] MEDS: Sodium Chloride 0.9% 500 ML IV SCH ×2 (07:29→07:30)
[2017-11-24] MEDS ORDERED: Sodium Chloride 0.9% 500 ML IVPB SCH (07:30)
[2017-11-24] MEDS ORDERED: Sterile Water 10 ML ONE (07:56)
[2017-11-24] MEDS: Cefepime 1 GM, Admixture Fee 1 EACH in Sterile Water 10 ML SLOW IVP SCH ×2 (08:30→20:52)
[2017-11-24] MEDS: Famotidine/PF 20 mg/2ml Vial SLOW IVP SCH (08:30)
[2017-11-24] MEDS: carBAMazepine 200 MG TAB PO SCH ×3 (08:30→21:40)
[2017-11-24] MEDS: Enoxaparin Sodium 30 MG/0.3 ML SYRINGE SC SCH (08:30)
[2017-11-24] MEDS: Valproate Sodium 250 mg/5 ml UD Cup PO SCH ×3 (08:31→21:40)
[2017-11-24] MEDS: HumaLOG 300 UNITS/3 ML VIAL SC PRN (12:47)
--- NOTE | 2017-11-24 16:44 | PDOC.PN ---
- Subjective Encounter Start Date: 11/24/17 Encounter Start Time: 16:42 Subjective: patient is still so weak and requiring full assist - Objective Resuscitation Status: Resuscitation Status DNR:Do Not Resuscitate Vital Signs & Weight: Vital Signs (12 hours) Temp Pulse Resp BP Pulse Ox 11/24/17 15:10 97.5 F L 50 L 12 112/56 L 100 11/24/17 11:25 97.4 F L 50 L 16 102/58 L 100 11/24/17 08:28 98.0 F 50 L 12 92/61 100 11/24/17 07:40 98.0 F 50 L 12 105/49 L 100 Weight Admit Weight 74 lb 9.6 oz Weight 74 lb 9.6 oz I&O: 11/23/17 11/24/17 11/25/17 06:59 06:59 06:59 Intake Total 1020 1000 Output Total 1105 1200 Balance -85 -200 Result Diagrams: 11/20/17 07:59 11/21/17 08:13 Additional Labs: Accuchecks 11/24/17 11/24/17 11/24/17 11:45 05:40 00:33 POC Glucose 209 H 145 H 154 H 11/23/17 17:04 POC Glucose 146 H Phys Exam - Physical Examination Constitutional: NAD HEENT: PERRLA, moist MMs, sclera anicteric, TM's clear Neck: no nodes, no JVD, supple, full ROM Respiratory: no wheezing, no rales, no rhonchi, clear to auscultation bilateral Cardiovascular: RRR, no significant murmur, no rub Dx/Plan (1) Acute kidney failure Status: Acute (2) Cerebral palsy Code(s): G80.9 - CEREBRAL PALSY, UNSPECIFIED Status: Chronic (3) Diabetes type 2, controlled Code(s): E11.9 - TYPE 2 DIABETES MELLITUS WITHOUT COMPLICATIONS Status: Chronic (4) Dyslipidemia Code(s): E78.5 - HYPERLIPIDEMIA, UNSPECIFIED Status: Chronic (5) Protein-calorie malnutrition, severe Code(s): E43 - UNSPECIFIED SEVERE PROTEIN-CALORIE MALNUTRITION Status: Chronic (6) Seizure disorder Code(s): G40.909 - EPILEPSY, UNSP, NOT INTRACTABLE, WITHOUT STATUS EPILEPTICUS Status: Chronic (7) Malnutrition due to starvation Code(s): E46 - UNSPECIFIED PROTEIN-CALORIE MALNUTRITION Status: Acute - Plan PT/OT, addiction social worker Awaiting family memebers -: Will initiate some form of nutrion-will secure Dobbhoff tube and start tube -: feeding per Nutrition recccomendation * .
--- NOTE | 2017-11-24 18:36 | RAD ---
ABDOMEN ONE VIEW 11/24/17 HISTORY: Dobhoff feeding tube placement. COMPARISON: One view 04/03/17. FINDINGS: Enteric tube tip at the gastric body. There are right lower lobe air space opacities. IMPRESSION: 1. Enteric tube tip gastric body. Recommend advancing. 2. Multifocal air space opacity in the right lung. POS: [facility]
--- NOTE | 2017-11-24 20:08 | RAD ---
ABDOMEN ONE VIEW 11/24/17 HISTORY: Dobhoff advancement. COMPARISON: None. FINDINGS: Dobhoff is coiled in the gastric antrum with tip at the gastric fundus. IMPRESSION: Dobhoff tube tip in the gastric fundus. Recommend retracting and readvancing. POS: [facility]
[2017-11-24] MEDS: Dextrose 5% in Water 1,000 ML IV SCH (21:40)
--- NOTE | 2017-11-24 23:56 | RAD ---
ABDOMEN ONE VIEW 11/24/17 HISTORY: Dobhoff advancement. COMPARISON: Multiple prior exams same day. FINDINGS: The Dobhoff tube is kinked at the level of the gastric antrum with tip in the gastric fundus. IMPRESSION: Dobhoff tube kinked at the gastric antrum with tip at the fundus. Recommend retracting and advancing. POS: [facility]
[2017-11-25] MEDS ORDERED: Pancrelipase DR 12000 1 CAP FS PRN (02:55)
[2017-11-25] MEDS ORDERED: Sodium Bicarbonate Tab 325 MG TAB PER TUBE PRN (02:55)
--- NOTE | 2017-11-25 08:58 | RAD ---
ABDOMEN 1 VIEW: Date: 11/25/17 HISTORY: 52-year-old female with Dobbhoff placement position check. COMPARISON: 11/25/17. FINDINGS: Dobbhoff tube has been pulled back slightly and the tip of it appears to be within the region of the distal antrum of the stomach. Mild increased linear and interstitial markings noted involving both kiki ngs, particularly the right perihilar region. IMPRESSION: Dobbhoff tube in satisfactory location. Right perihilar parenchymal changes, stable. POS: [facility]
--- NOTE | 2017-11-25 09:01 | RAD ---
ABDOMEN 1 VIEW: Date: 11/25/17 HISTORY: 52-year-old female with Dobbhoff feeding tube placement for position check. FINDINGS: The Dobbhoff tube is somewhat coiled within the stomach, with the tip of the Dobbhoff tube in the reg ion of the greater curvature. Patchy linear parenchymal changes in the right parahilar region. No ove rt bowel obstruction. IMPRESSION: Dobbhoff tube with the tip in the region of the greater trochanter. Right parahilar parenchymal pedro es. POS: [facility]
[2017-11-25] MEDS: Cefepime 1 GM, Admixture Fee 1 EACH in Sterile Water 10 ML SLOW IVP SCH ×2 (09:56→20:38)
[2017-11-25] MEDS: Enoxaparin Sodium 30 MG/0.3 ML SYRINGE SC SCH (09:57)
[2017-11-25] MEDS: Famotidine/PF 20 mg/2ml Vial SLOW IVP SCH (09:57)
[2017-11-25] MEDS: carBAMazepine 200 MG TAB PO SCH ×3 (09:58→20:38)
[2017-11-25] MEDS: Valproate Sodium 250 mg/5 ml UD Cup PO SCH ×3 (09:58→20:38)
[2017-11-25] MEDS: HumaLOG 300 UNITS/3 ML VIAL SC PRN ×2 (11:47→18:21)
[2017-11-25] MEDS: Sodium Chloride 0.9% 1,000 ML IV SCH (23:15)
[2017-11-26] MEDS: Dextrose 5% in Water 1,000 ML IV SCH (00:30)
[2017-11-26 04:28] LABS: ALT (SGPT) 59 U/L (8-55); AST (SGOT) 27 U/L (5-34); Albumin 2.3 g/dL (3.5-5.0); Alkaline Phosphatase 56 U/L (40-150); Anion Gap 12 mmol/L (10-20); BUN (Urea Nitrogen) 7 mg/dL (9.8-20.1); Bilirubin, Total Less than 0.2 mg/dL (0.2-1.2); Calc. Creatinine Clearance 48 mL/min (70-130); Calcium 7.7 mg/dL (7.8-10.44); Carbon Dioxide 24 mmol/L (22-29); Chloride 107 mmol/L (98-107); Estimated GFR-MDRD Greater than 90; Globulin 3.5 g/dL (2.4-3.5); Glucose 233 mg/dL (70-105); Magnesium 1.6 mg/dL (1.6-2.6); Phosphorus 2.6 mg/dL (2.3-4.7); Protein, Total 5.8 g/dL (6.0-8.3); Sodium 140 mmol/L (136-145)
[2017-11-26 04:31] LABS: Potassium 2.9 mmol/L (3.5-5.1)
[2017-11-26] MEDS ORDERED: Potassium Chloride 40 MEQ in Sodium Chloride 0.9% 250 ML 250 ML IVPB SCH (05:00)
[2017-11-26] MEDS: HumaLOG 300 UNITS/3 ML VIAL SC PRN ×2 (05:54→18:00)
--- NOTE | 2017-11-26 08:36 | PDOC.PN ---
- Subjective Encounter Start Date: 11/25/17 Encounter Start Time: 08:35 Subjective: Seen and examined feeling same - Objective Resuscitation Status: Resuscitation Status DNR:Do Not Resuscitate Vital Signs & Weight: Vital Signs (12 hours) Temp Pulse Resp BP Pulse Ox 11/26/17 07:27 97.7 F 68 14 87/49 L 98 11/26/17 04:00 97.5 F L 86 16 101/55 L 95 11/26/17 00:30 93/58 L 11/25/17 23:56 99 F 65 14 81/51 L 98 Weight Admit Weight 74 lb 9.6 oz Weight 74 lb 9.6 oz I&O: 11/25/17 11/26/17 11/27/17 06:59 06:59 06:59 Intake Total 1020 2280 Output Total 850 925 Balance 170 1355 Result Diagrams: 11/20/17 07:59 11/26/17 03:28 Additional Labs: Accuchecks 11/26/17 11/26/17 11/25/17 05:38 00:09 17:51 POC Glucose 221 H 139 H 174 H 11/25/17 11:39 POC Glucose 364 H Phys Exam - Physical Examination Constitutional: NAD HEENT: PERRLA, moist MMs, sclera anicteric, TM's clear Neck: no nodes, no JVD, supple, full ROM Respiratory: no wheezing, no rales, no rhonchi Cardiovascular: RRR, no significant murmur, no rub Gastrointestinal: soft, non-tender, no distention, positive bowel sounds Musculoskeletal: no edema, pulses present Dx/Plan (1) Acute kidney failure Status: Acute (2) Cerebral palsy Code(s): G80.9 - CEREBRAL PALSY, UNSPECIFIED Status: Chronic (3) Diabetes type 2, controlled Code(s): E11.9 - TYPE 2 DIABETES MELLITUS WITHOUT COMPLICATIONS Status: Chronic (4) Dyslipidemia Code(s): E78.5 - HYPERLIPIDEMIA, UNSPECIFIED Status: Chronic (5) Protein-calorie malnutrition, severe Code(s): E43 - UNSPECIFIED SEVERE PROTEIN-CALORIE MALNUTRITION Status: Chronic (6) Seizure disorder Code(s): G40.909 - EPILEPSY, UNSP, NOT INTRACTABLE, WITHOUT STATUS EPILEPTICUS Status: Chronic (7) Malnutrition due to starvation Code(s): E46 - UNSPECIFIED PROTEIN-CALORIE MALNUTRITION Status: Acute - Plan plan discussed w/ family, PT/OT, nursing home social worker Tube feeding * .
--- NOTE | 2017-11-26 08:37 | PDOC.PN ---
- Subjective Encounter Start Date: 11/26/17 Encounter Start Time: 08:36 Subjective: Seen and examined tolerating tube feeding - Objective Resuscitation Status: Resuscitation Status DNR:Do Not Resuscitate Vital Signs & Weight: Vital Signs (12 hours) Temp Pulse Resp BP Pulse Ox 11/26/17 07:27 97.7 F 68 14 87/49 L 98 11/26/17 04:00 97.5 F L 86 16 101/55 L 95 11/26/17 00:30 93/58 L 11/25/17 23:56 99 F 65 14 81/51 L 98 Weight Admit Weight 74 lb 9.6 oz Weight 74 lb 9.6 oz I&O: 11/25/17 11/26/17 11/27/17 06:59 06:59 06:59 Intake Total 1020 2280 Output Total 850 925 Balance 170 1355 Result Diagrams: 11/20/17 07:59 11/26/17 03:28 Additional Labs: Accuchecks 11/26/17 11/26/17 11/25/17 05:38 00:09 17:51 POC Glucose 221 H 139 H 174 H 11/25/17 11:39 POC Glucose 364 H Phys Exam - Physical Examination Constitutional: NAD HEENT: PERRLA, moist MMs, sclera anicteric, TM's clear Neck: no nodes, no JVD, supple Respiratory: no wheezing, no rales, no rhonchi, clear to auscultation bilateral Cardiovascular: RRR, no significant murmur, no rub Gastrointestinal: soft, non-tender, no distention Musculoskeletal: no edema, pulses present Dx/Plan (1) Acute kidney failure Status: Acute (2) Cerebral palsy Code(s): G80.9 - CEREBRAL PALSY, UNSPECIFIED Status: Chronic (3) Diabetes type 2, controlled Code(s): E11.9 - TYPE 2 DIABETES MELLITUS WITHOUT COMPLICATIONS Status: Chronic (4) Dyslipidemia Code(s): E78.5 - HYPERLIPIDEMIA, UNSPECIFIED Status: Chronic (5) Protein-calorie malnutrition, severe Code(s): E43 - UNSPECIFIED SEVERE PROTEIN-CALORIE MALNUTRITION Status: Chronic (6) Seizure disorder Code(s): G40.909 - EPILEPSY, UNSP, NOT INTRACTABLE, WITHOUT STATUS EPILEPTICUS Status: Chronic (7) Malnutrition due to starvation Code(s): E46 - UNSPECIFIED PROTEIN-CALORIE MALNUTRITION Status: Acute - Plan cont current plan of care, plan discussed w/ family, PT/OT, social staff worker Adjusting tube feeding as tolerated -: Dispo planning awaiting family * .
[2017-11-26] MEDS: carBAMazepine 200 MG TAB PO SCH ×5 (09:07→22:08)
[2017-11-26] MEDS: Valproate Sodium 250 mg/5 ml UD Cup PO SCH ×5 (09:07→22:07)
[2017-11-26] MEDS: Cefepime 1 GM, Admixture Fee 1 EACH in Sterile Water 10 ML SLOW IVP SCH ×2 (09:07→22:07)
[2017-11-26] MEDS: Enoxaparin Sodium 30 MG/0.3 ML SYRINGE SC SCH (09:07)
[2017-11-26] MEDS: Famotidine/PF 20 mg/2ml Vial SLOW IVP SCH (09:07)
[2017-11-27] MEDS: Sodium Chloride 0.9% 1,000 ML IV SCH (02:05)
[2017-11-27 04:37] LABS: ALT (SGPT) 56 U/L (8-55); AST (SGOT) 28 U/L (5-34); Albumin 2.3 g/dL (3.5-5.0); Alkaline Phosphatase 61 U/L (40-150); Anion Gap 13 mmol/L (10-20); BUN (Urea Nitrogen) 10 mg/dL (9.8-20.1); Bilirubin, Total Less than 0.2 mg/dL (0.2-1.2); Calc. Creatinine Clearance 54 mL/min (70-130); Calcium 7.8 mg/dL (7.8-10.44); Carbon Dioxide 23 mmol/L (22-29); Chloride 113 mmol/L (98-107); Estimated GFR-MDRD Greater than 90; Globulin 3.4 g/dL (2.4-3.5); Glucose 204 mg/dL (70-105); Magnesium 1.8 mg/dL (1.6-2.6); Phosphorus 2.7 mg/dL (2.3-4.7); Potassium 3.6 mmol/L (3.5-5.1); Protein, Total 5.7 g/dL (6.0-8.3); Sodium 145 mmol/L (136-145)
[2017-11-27] MEDS: HumaLOG 300 UNITS/3 ML VIAL SC PRN ×2 (08:15→12:51)
[2017-11-27] MEDS: Enoxaparin Sodium 30 MG/0.3 ML SYRINGE SC SCH (09:49)
[2017-11-27] MEDS: Valproate Sodium 250 mg/5 ml UD Cup PO SCH ×2 (09:50→15:15)
[2017-11-27] MEDS: Famotidine/PF 20 mg/2ml Vial SLOW IVP SCH (09:51)
[2017-11-27] MEDS: carBAMazepine 200 MG TAB PO SCH ×2 (09:52→15:15)
[2017-11-27] MEDS: Cefepime 1 GM, Admixture Fee 1 EACH in Sterile Water 10 ML SLOW IVP SCH ×2 (10:59→12:51)
--- NOTE | 2017-11-27 14:23 | DIS ---
DATE OF ADMISSION: 11/16/2017 DATE OF DISCHARGE: 11/27/2017 DISCHARGE DISPOSITION: To the [facility] with hospice. PRIMARY DISCHARGE DIAGNOSES: 1. Acute right lower lobe pneumonia, likely secondary to aspiration. 2. Sepsis due to #1. 3. Acute kidney injury. 4. Moderate protein calorie malnutrition. 5. Dehydration. 6. Complex partial seizures. 7. History of mental retardation and bedridden status. 8. Multiple extremity contractures. CODE STATUS: DNR. ALLERGIES: No known drug allergies. HOSPITAL COURSE: Ms. Mora is a 52-year-old female who resides in a fpc. She has advanced mental retardation and also history of partial complex seizures. She is essentially bedridden. She was admitted due to severe pneumonia with sepsis and multiorgan dysfunction. She was initially star thania on IV antibiotics and her nutrition was supported via tube feeding. She did not have significant improvement during the course of her hospital stay with the exception of her renal function did impr ove, but given her overall prognosis and chronically debilitated state, the patient's family decided to transition her care to comfort care only to discontinue Dobbhoff tube feedings and place her on co mfort measures as well as pleasure feeds. The antibiotics will also be discontinued and she will be discharged to [facility] on hospice. Her medications will be given as she is able to tolerate them. DISCHARGE MEDICATIONS: Will include carbamazepine 200 mg twice daily, valproic acid 500 mg t.i.d., K eppra 500 mg twice a day, Flexeril 10 mg at bedtime, NovoLog insulin on a sliding scale basis, lorata dine 10 mg daily, metformin XL 500 mg daily, pravastatin 20 mg at bedtime, and multivitamin daily. A gain this is only as tolerated as the patient has had significant difficulty with swallowing.
[2017-11-27 15:48] VITALS: BP 113/81; TEMP 97.7
== END 2017-11-27 16:34 | disposition hospice, inpatient (51) | DRG 871 ==
LOC: ERS 15:40 → IMCU/EMU 17:40 → SJJU 11-17 18:39
PROVIDERS: ADMIT Internal Medicine; ATTEND Internal Medicine
DX: A41.9 Sepsis, unspecified organism (principal); J69.0 Pneumonitis due to inhalation of food and vomit; J96.01 Acute respiratory failure with hypoxia; R65.21 Severe sepsis with septic shock; E43 Unspecified severe protein-calorie malnutrition; E87.2 Acidosis; G93.49 Other encephalopathy; E11.9 Type 2 diabetes mellitus without complications; D53.9 Nutritional anemia, unspecified; G40.209 Localization-related (focal) (partial) symptomatic epilepsy and epileptic syndromes with complex partial seizures, not intractable, without status epilepticus; N17.9 Acute kidney failure, unspecified; Z68.1 Body mass index [BMI] 19.9 or less, adult; E86.0 Dehydration; E78.5 Hyperlipidemia, unspecified; G80.9 Cerebral palsy, unspecified; E86.9 Volume depletion, unspecified; F79 Unspecified intellectual disabilities; R74.0 Nonspecific elevation of levels of transaminase and lactic acid dehydrogenase [LDH]; Z66 Do not resuscitate; Z74.01 Bed confinement status
CPT/HCPCS: 36415; 36416; 51702; 71045; 74018; 80053; 80156; 80164; 81003; 81015; 82533; 82553; 83605; 83735; 84100; 84484; 85025; 87040; 87086; 93005; 96361; 96365; 96368; A4216; G8996-GN-CM; G8997-GN-CM; J0692; J1650; J1940; J1953; J1956; J2920; J3370; J3480; J3490; J7050; S0028